=== PATIENT | male | born 1965 | race Caucasian/White ===

== ENCOUNTER 2017-10-04 10:09 | Emergency (ER) | payer BC, OTHER ==
[2017-10-04] MEDS ORDERED: TETANUS AND DIPHTHERIA TOXOID 0.5 ML SYRG IM ONE (10:33)
--- NOTE | 2017-10-04 10:34 | ERNOTE ---
Upper Extremity HPI - Narrative Date of Service: 10/04/17 - General Extremities Pain Location: 2nd finger: right Time Seen by Provider: 10/04/17 10:21 Source: patient, family Exam Limitations: no limitations - Immun/Allergies/Home Medications Allergies/Adverse Reactions: Allergies Allergy/AdvReac Type Severity Reaction Status Date / Time beer AdvReac Nausea Uncoded 10/04/17 10:25 Home Medications: HOME MEDICATIONS Cholecalciferol [Vitamin D] 5,000 unit PO DAILY 10/04/17 [Last Taken Unknown] Famotidine [Pepcid AC] 10 mg PO BID 10/04/17 [Last Taken Unknown] Liraglutide [Victoza 2-Kike] 1.8 mg SQ 10/04/17 [Last Taken Unknown] Lisinopril [Zestril] 5 mg PO DAILY 10/04/17 [Last Taken Unknown] Loratadine [Claritin] 10 mg PO DAILY 10/04/17 [Last Taken Unknown] Niacin mg PO DAILY 10/04/17 [Last Taken Unknown] Rosuvastatin Calcium [Crestor] 10 mg PO DAILY 10/04/17 [Last Taken Unknown] Zolpidem Tartrate [Ambien] 10 mg PO HS PRN 10/04/17 [Last Taken Unknown] metFORMIN HCL [Glucophage] 1,000 mg PO BIDWM 10/04/17 [Last Taken Unknown] - History of Present Illness Narrative: Patient was in the kitchen prying apart some food and the knife slipped cutting the inside of his 2nd finger right hand. Date (Duration): 10/04/17 Time (Timing): 10:00 Occurred: just prior to arrival Location of Incident: home Severity: mild Method of Injury: Reports: other - butter knife cut in the kitchen Other Injuries: Reports: none Review of Systems - Narrative Narrative: Patient states they are camping and he was in the kitchen of his camper prying some frozen foods apart with a butter knife. States the knife slipped cutting the palmar side of his right hand 2nd digit. Denies any loss of sensation or movement distally. - Review of Systems Constitutional: Present: no symptoms reported EYE: Present: no symptoms reported ENT: Present: no symptoms reported Musculoskeletal: Present: no symptoms reported, other - States he has full and active ROM of the 2nd finger right hand. Skin: Present: other - Laceration as described. Neurological: Present: no symptoms reported, other - No loss of sensation distally. Endocrine: Present: no symptoms reported Physical Exam - Physical Exam General Appearance: Present: alert, no apparent distress Peripheral Pulses: N=norm/S=strong/W=weak/B=bound/A=absent: Radial (R): Normal Extremity Exam: Present: normal range of motion, other - Including full flexion and extension of 2nd digit right hand. Neurological Exam: Present: alert, oriented Skin Exam: Present: other - 1.5 cm simple laceration volar 2nd digit right hand crossing over DIP joint Procedures Right Volar Finger 2nd Digit Anesthesia: 1% Lidocaine I & D Prep: betadine prep, sterile drapes applied, sterile dressing applied Length of Repair/Wound (cm): 1.5 Wound's Depth/Shape: into subcutaneous Wound Explored: clean, no foreign body Wound Intervention: irrigated w/saline Distal NVT: neuro/vasc intact, no tendon injury Wound Repaired With: sutures Suture Size/Type: 5-0, nylon Layer Closure: Simple Estimated blood loss (ml): 0 Wound Dressing: sterile dressing applied Complications: Pt andre procedure well Comment: Digit block w/ lidocaine w/out epi. 4 sutures of 5-0 ethilon All performed using sterile technique. Patient tolerated procedure well. Departure Clinical Impression: Laceration of finger of right hand - Departure Disposition: Home self-care Condition: Good Instructions: Laceration Care, Adult, [id number] Additional Instructions: In 36 hrs remove bandage and may start washing with warm water and mild soap. Keep covered if in a dirty environment. Monitor for any signs of infection including fever, drainage, increased pain, red streaks. Suture removal in 9 days. Follow up with family provider as needed.
[2017-10-04 10:37] VITALS: BP 124/88
[2017-10-04] MEDS ORDERED: DIPHTH,PERTUSS(ACELL),TET VAC 0.5 ML VIAL IM ONE ×2 (11:04→11:30)
== END 2017-10-04 11:15 | disposition home or self-care (01) ==
LOC: ER 10:09
PROC: 0JQJ0ZZ Repair Right Hand Subcutaneous Tissue and Fascia, Open Approach (ICD-10-PCS; principal; 2017-10-04)
DX: S61.210A Laceration without foreign body of right index finger without damage to nail, initial encounter (principal); W26.0XXA Contact with knife, initial encounter; Y93.G1 Activity, food preparation and clean up; Y92.090 Kitchen in other non-institutional residence as the place of occurrence of the external cause; Z23 Encounter for immunization